=== PATIENT | male | born 1955 | race Caucasian/White ===

== ENCOUNTER 2018-06-12 09:44 | Inpatient (IN) | payer OTHER, SELFPAY ==
[2018-05-29 13:31] VITALS: BMI 24.3
[2018-06-12] VITALS (17 sets, daily range): BP systolic 105–174; BP diastolic 67–101; PULSE 68–112; RESP 10–20; TEMP 36–36.6; O2SAT 92–100; BMI 24.3
--- NOTE | 2018-06-12 | DI.RAD.S_ITS ---
PROCEDURE: XR CERVICAL SPINE 2V OR 3V INDICATIONS: ACDF C3-7 TECHNIQUE: 2 intraoperative fluoroscopic view(s) of the cervical spine were acquired. COMPARISON: None. FINDINGS: Bones: 2 intraoperative fluoroscopic views demonstrate ACDF from C3-C7. IMPRESSION: Intraoperative fluoroscopic views of cervical spine fusion. Dictated by: Carly Davis M.D. on 06/12/2018 at 17:45 Approved by: Carly Davis M.D. on 06/12/2018 at 17:46
[2018-06-12] MEDS: LACTATED RINGERS 1,000 ML 42 ML IV ×2 (10:12→16:05)
[2018-06-12] MEDS: ONDANSETRON 4 MG/2 ML INJ IV ×3 (10:58→22:45)
[2018-06-12] MEDS: LORazepam 2 MG/ML SYRINGE 0.5 MG IV (10:58)
--- NOTE | 2018-06-12 12:51 | PM.PREOP ---
Pre-operative Note Interval Note Pre-op Check: Yes History & Physical Reviewed by Physician and Yes Exam Performed Changes: No
--- NOTE | 2018-06-12 13:56 | P.OP_ITS ---
Operative Date/Time/Diagnoses Date of procedure: 06/12/18 Time of procedure: 17:35 Pre-op diagnosis: Cervical stenosis with myelopathy Post-op diagnosis: same Procedure & Clinicians Procedure: C3-4, C4-5, C5-6, C6-7 posterior instrumented fusion C3-4, C4-5, C5-6, C6-7 anterior cervical diskectomy and fusion with cages Iliac crest bone graft Use of microscope Same procedure as scheduled: Yes Indications: [age] year old male with intractable pain from cervical stenosis. They had failed conservative management and requested operative intervention. Risks and benefits of surgery were discussed and appropriate consents were obtained. Surgeon: Rupert Guzman Biomedical Engineering Director: Destinee Du Anesthesia Type: General Operative Notes Findings: none Closure Type: primary Specimen(s): none sent Implants & Drains: DTrax posterior cages and screws Darren LDR LEON-C anteriorly Applied: catheter Estimated Blood Loss (mL): 10 Procedure in detail: The patient was brought to the operating room and intubated on the stretcher. Time-out was performed. There were then rolled over to the well-padded prone position on chest rolls. Two views of fluoroscopy were taken to confirm our positioning. The neck was then prepped and draped in the standard sterile fashion. Preoperative antibiotics were given. Using fluoroscopy, we localized for planned incisions. Two small 8 mm horizontal incisions were made over the lateral masses approximately 2 fingers below our planned surgical site. We then spread down and opened up the fascia. Then percutaneously placed our Steinmann pin through the soft tissue into the facet joint at C3-4 under fluoroscopic visualization. We used the reamer to decorticate the lateral masses compromising the facet. A trocar was placed over the Steinmann pin into the facet and then the pin was removed. We used a rasp to decorticate the facet joint itself. We then filled the DTrax cage with Osteocell bone graft and impacted it into the facet joint at C3-4 under fluoroscopic guidance. We then took the lateral mass screw and placed it through the cage and then into the lateral mass for the posterior screw fixation. The music journalist was removed and we packed more bone graft down the trocar covering the lateral mass. This was done bilaterally. This completed the instrumented posterior fusion at C3-4. We then went to the next levels at C4-5, C5-6, and C6-7. The same procedure was performed with preparation, placement of the cage with bone graft, and placement of the screw for instrumented posterior fusion at C4-5, C5-6 and C6- 7. He had an absent left C6 pedicle and lamina and had 1 large C5-7 facet. This level was done on the left. We did make 2 lower incisions to get the lower 2 levels as well. The wounds were irrigated. The skin was closed and a sterile dressing placed. The patient was then rolled over to the table in the supine position and positioned for the anterior surgery. The arms were tucked and a shoulder roll was placed. The neck and left iliac crest were prepped and draped in the standard sterile fashion. A 3 cm oblique incision was made on the left side of the neck along the skin fold. Bovie was used to split the platysma. We then bluntly dissected a standard anterolateral approach to the precervical fascia. A marker was placed and x-ray taken to confirm our positioning. We then used the Bovie to the subperiosteally lift up the longus colli muscles. Self-retaining retractors were placed. We then placed [place] pins and distracted across the C3-4 disc space. We brought in the microscope. A complete anterior discectomy was performed at C3-4 using a combination of scalpel, curettes, pituitaries, and Kerrison rongeurs. The bur was used to take down the posterior osteophytes as well as decorticate the disc space. We then released the PLL and used the Kerrison to remove any further posterior osteophytes and disc material. At the end a nerve hook could be swept cephalad caudally and out the neural foramen and everything was open. We trialed for our cages. A small stab incision was made over the left iliac crest. We placed a Jamshidi aspiration needle into the iliac crest and aspirated several mL of bone marrow graft. We then took our Darren LDR LEON-C cage and packed it with Osteocell, and mixed in the bone marrow aspirate. The cage was then placed into the disc space under fluoroscopic guidance. The 2 locking plates were placed through the cage for fixation. This completed the ACDF at C3-4. We then went to the next level at C4-5, C5-6, and C6-7. Again a complete diskectomy was performed including taking down the PLL and posterior osteophytes and disc material. The endplates were prepped with a bur. We trialed and then packed our LEON-C cage with the bone graft and then placed into the disc space. The locking plates were placed as well. This completed the ACDF at C4-5, C5-6, and C6-7. Final x-rays were taken. The wound was copiously irrigated. There was no bleeding. The carotid was bleeding nicely. The platysma was closed. The superficial skin were closed. A Steri-Strip was placed over the iliac crest incision. Sterile dressings were placed. The patient was then extubated and brought to the recovery room without complication. Complications: none Condition: stable Disposition: PACU Plan for aftercare: Up with physical therapy. Soft collar for comfort.
[2018-06-12] MEDS: CEFAZOLIN 2 GM/100 ML FROZ.PIGGY IV ×2 (14:20→22:48)
--- NOTE | 2018-06-12 15:13 | SUR.OPER ---
Supine, head on gel donut. Arms padded with gel pads, tucked at sides, towel roll under shoulders. Safety belt at thigh. Legs uncrossed.
--- NOTE | 2018-06-12 15:13 | SUR.OPER ---
Prone on padded OR bed, head in foam head support, gel chest rolls, gel pad under knees, pillow under lower legs, toes free of pressure, arms secured at sides. Tape from bilateral shoulders to foot of bed. Tape across body at lower back and lower legs.
[2018-06-12] MEDS: SODIUM CHLORIDE 0.9% 1,000 ML, GENTAMICIN 80 MG IRR (15:21)
[2018-06-12] MEDS: BUPIVACAINE 0.25% W/ EPI VIAL 50 ML INJ (15:50)
[2018-06-12] MEDS: ACETAMINOPHEN IV 1,000 MG/100 ML VIAL 400 MG IV (16:00)
[2018-06-12] MEDS: HYDROMORPHONE 2 MG INJ 0.5 MG IV ×2 (19:00→19:05)
[2018-06-12] MEDS: HYDROMORPHONE 1 MG INJ 0.5 MG IV (20:33)
[2018-06-12] MEDS: LACTATED RINGERS 1,000 ML 125 ML IV (21:15)
[2018-06-12] MEDS: HYDROCODONE/ACET 5/325 TABLET 2 TAB PO (22:41)
[2018-06-12] MEDS: hydrOXYzine pamoate 25 MG CAPSULE PO (22:41)
[2018-06-13] MEDS: HYDROMORPHONE 1 MG INJ 0.5 MG IV ×3 (00:31→04:21)
[2018-06-13 03:44] VITALS: BP 147/94; PULSE 106; RESP 18; TEMP 37.2; O2SAT 99
[2018-06-13] MEDS: MAG HYDROX/ALUM/SIMETH 30 ML UDC PO (04:02)
[2018-06-13] MEDS: ONDANSETRON 4 MG/2 ML INJ IV ×3 (04:07→19:04)
--- NOTE | 2018-06-13 04:53 | PC.NURSE ---
Dr. Jefferson, notified that have been having N&V, since early this shift & vomited x2. Noted N/V after given Dilaudid, even pre medicated with Zofran 4 mg. Also mentioned that he C/O CP, ECG done ST & HR been in low 100's to 110. Given some Maalox only took 10 cc, but reported it helped. Received orders to try to give Morphine 2-4 mg. every 2 hrs. as needed for pain. Will implement orders.
[2018-06-13] MEDS: LACTATED RINGERS 1,000 ML 125 ML IV ×2 (05:47→14:05)
[2018-06-13] MEDS: CEFAZOLIN 2 GM/100 ML FROZ.PIGGY IV (05:48)
[2018-06-13] MEDS: MORPHINE 2 MG/ML INJ IV ×5 (06:12→16:57)
[2018-06-13 07:40] VITALS: BP 151/82; PULSE 113; RESP 18; TEMP 36.6; O2SAT 99
--- NOTE | 2018-06-13 08:16 | PM.PNPO.1 ---
Subjective Date Patient Seen: 06/13/18 Time Patient Seen: 08:16 Interval history: Very rough night. A large amount of pain into the upper trapezius. Arms are fine. He has been very nauseated and has had emesis. He was also having chest pain. His EKG was normal except for just some slight sinus tachycardia. This was much better with Maalox and it went away. However he wound up throwing up again. Exam Vital Signs (past 8 hours): - 06/13/18 03:44 06/13/18 07:40 Temperature 98.9 F 97.8 F Pulse Rate 106 H 113 H Respiratory Rate 18 18 Blood Pressure 147/94 H 151/82 H Pulse Oximetry 99 99 Oxygen Delivery Method Room Air Oxygen Flow Rate 0 Const Orientation: alert and oriented x3 Back/Spine/Pelvis Other: Anterior dressing CDI. Moderate drainage posterior dressing. 5/5 motor both upper extremities Assessment & Plan Post-op Postoperative Procedures Operation Date: 06/12/18 11:45 Actual Procedures Side Surgeon p C3-4,C4-5,C5-6,C6-7 Anterior discectomy & Ant/Post Instru. Fusion w/Iliac Crest Bone graft Not Applicable Rupert Guzman MD Stable after the surgery. However, pain control and nausea are the main issues. We will work on adjusting his medications for this. Try to get up out of bed today. Quality VTE Deep Vein Thrombosis/Pulmonary Embolism Present on Admission: No
[2018-06-13] MEDS: LORazepam 2 MG/ML SYRINGE 0.5 MG IV (08:36)
[2018-06-13] MEDS: PANTOPRAZOLE 40 MG VIAL IV (09:55)
[2018-06-13] MEDS: DEXAMETHASONE 10 MG/ML VIAL IV (09:55)
[2018-06-13] MEDS: diazePAM 2 MG TABLET PO (11:52)
--- NOTE | 2018-06-13 14:00 | OT.IP.TRT ---
Current Diagnoses Spinal stenosis, cervical region (06/12/18) Surgery Performed Operation Date: 06/12/18 11:45 Actual Procedures p C3-4,C4-5,C5-6,C6-7 Anterior discectomy & Ant/Post Instru. Fusion w/Iliac Crest Bone graft(Not Applicable) - Rupret Guzman MD Occupational Therapy Treatment Note M3 OT- IP Subjective and Pain Start: 06/13/18 14:03 Freq: Status: Active Protocol: Document 06/13/18 14:03 [facility] (Rec: 06/13/18 14:05 [facility] [id number]) OT- Subjective Occupational Therapy Visit Type Type Administrative Note Visit Start Time 14:00 Notes OT referral received. RN requesting Hold OT eval today as pt has had poor pain control, N/V and high anxiety requiring multiple sedating meds and pt now on steroids as well. Pt not ready for assessment of self care skills s/p C3-7 ant/post fusion. Will attempt again in AM as medical status permits. No charge.
--- NOTE | 2018-06-13 14:35 | SLP.IPNOTE ---
Order received for a speech/swallow consult following C3-7 cervical fusion on 06/12/18. Pt was in bed with c/o pain. Pt presented with good resonant vocal quality without s/sx of breathiness/ aphonia, or other vocal quality difference. Pt reported that his voice sounded normal to him. When asked about swallowing, the pt reported that his throat and esophagus felt swollen, He was assured that this was normal following his surgical procedure. He was able to swallow thin liquids without difficulty and reported that he needs to mush up his foods and take very small bites slowly in order to make it easier to swallow. Education was provided to the pt regarding precautions during eating/drinking. Aditionally, he was counseled to contact his physician if he feels he has difficulty with his swallow/voice in the near future. Non-billable visit <15 minutes.
--- NOTE | 2018-06-13 14:46 | PC.NURSE ---
day shift pt very concerned with pain medication and hyper-focused on small details. asks repeatedly to tell pt the medications and what they do to him. Per MD, start IV protonix for GERD, IV decadron, PO valium (crushed in applesauce), and continued IV morphine with zofran for pain control. Pt was able to sleep this afternoon. Upon awakening, states pain is again 8.8-8.9. States goes down to a 7.9-8.2 with pain medication. sat on edge of bed to attempt to eat, had a few bites of egg, applesauce and water. IVF continued. No emesis this shift. hourly rounding provided, call light within reach.
--- NOTE | 2018-06-13 14:50 | PT.IPTN ---
Addendum entered and electronically signed by Delfina Mendoza PT 06/13/18 14:54: this is to certify that I have reviewed this documentation and POC Original Note: Current Diagnoses Spinal stenosis, cervical region (06/12/18) Surgery Performed Operation Date: 06/12/18 11:45 Actual Procedures p C3-4,C4-5,C5-6,C6-7 Anterior discectomy & Ant/Post Instru. Fusion w/Iliac Crest Bone graft(Not Applicable) - Rupert Guzman MD Physical Therapy Treatment Note M3 PT-IP Subjective Start: 06/13/18 14:43 Freq: NEEDED Status: Active Protocol: Document 06/13/18 14:43 (Rec: 06/13/18 14:47 [id number]) Subjective Physical Therapy Visit Type Type Patient Refusal Notes Checked on pt multiple times this morning for PT evaluation . Pt requests waiting to work with PT due to excruciating pain. He states pain is 8/10 despite pain medications and worsens with even slight movements. His HR is also very high in supine at rest ( ranging 116-120 bpm both times PT checked). Nurse aware of pt status and says she is preparing to give him morphine . PT will check on him again this afternoon and if he is still not ready and HR still high, PT will hold for today and check in the morning.
--- NOTE | 2018-06-13 15:09 | PT.IPTN ---
Addendum entered and electronically signed by Delfina Mendoza PT 06/13/18 16:18: This is to certify that I have reviewed this documentation and POC Original Note: Addendum entered and electronically signed by Delfina Mendoza PT 06/13/18 16:14: This is to certify that I have reviewed this documentation and POC Original Note: Current Diagnoses Spinal stenosis, cervical region (06/12/18) Surgery Performed Operation Date: 06/12/18 11:45 Actual Procedures p C3-4,C4-5,C5-6,C6-7 Anterior discectomy & Ant/Post Instru. Fusion w/Iliac Crest Bone graft(Not Applicable) - Rupert Guzamn MD Physical Therapy Treatment Note M3 PT-IP Subjective Start: 06/13/18 14:43 Freq: NEEDED Status: Active Protocol: Document 06/13/18 15:07 (Rec: 06/13/18 15:09 [id number]) Subjective Physical Therapy Visit Type Type Patient Refusal Notes Pt continues to request hold on PT due to high levels of pain. Rates pain 8-9/10 despite recent dose of Morphine. His HR also remains very high at rest (116- 125 in supine with conversation). Pt told PT will check on him in the morning.
--- NOTE | 2018-06-13 15:15 | CM.IDA ---
Discharge Planning/Care Management CM Discharge Assessment Start: 06/13/18 15:10 Freq: Status: Active Protocol: Document 06/13/18 15:10 [facility] (Rec: 06/13/18 15:15 [facility] [id number]) Discharge Planning Assessment Assigned Enrollment Representative GABBY Landry DPOA/Assigned Designee Name Zina Alba, spouse Contact Information [phone] Advance Directives? No Advance Directives on File No History Provided By Patient Prior Living Arrangements House Household Members spouse Type of transporation used prior to Drives own vehicle admit Independent with ADL's Yes Is patient alert and oriented? Yes Comment Home w/spouse is expected Barriers to Discharge No Comment PT held today d/t pt's request , states in too much pain -. According to notes, pt had a very tough evening, N/V and pain. Met briefly w/pt and spouse Zina this morning, explained role and left contact information. Pt expects to DC home w.spouse to assist when medically stable and pain under better control. Following closely in case DC needs or concerns arise. Discharge Plan Home Transportation Arrangement Family Referrals Initiated None needed Additional Comment Likely none needed. POD#1 and PT is still pending. Whiteboard Updated in Patient Room with Yes name and ext. # of Enrollment Representative
[2018-06-13 15:33] VITALS: BP 161/99; PULSE 122; RESP 20; TEMP 36.6; O2SAT 97
--- NOTE | 2018-06-13 17:04 | PC.NURSE ---
PATIENT IS UP TO BATHROOM SBA WITH SOFT COLLAR IN PLACE,BACK TO BED REQUESTS MORPHINE IVP,WHILE GETTING 2MG PATIENT STATES WAS NOT ENOUGH AND WOULD LIKE 4MG THIS TIME,ANOTHER 2MG GIVEN FOR 8/10 NECK PAIN.
[2018-06-13] MEDS: MORPHINE 4 MG/ML INJ IV ×2 (19:04→21:17)
[2018-06-13 20:00] VITALS: BP 143/83; PULSE 108; RESP 20; TEMP 37.3; O2SAT 97
[2018-06-13] MEDS: METOCLOPRAMIDE 10 MG/2 ML INJ IV (21:17)
[2018-06-13] MEDS: DOCUSATE 100 MG CAPSULE PO (21:18)
[2018-06-13] MEDS: CELECOXIB 200 MG CAPSULE PO (21:18)
[2018-06-13] MEDS: GABAPENTIN 300 MG CAPSULE PO (21:18)
[2018-06-14] MEDS: MORPHINE 2 MG/ML INJ IV (00:14)
[2018-06-14 00:15] VITALS: BP 133/73; PULSE 113; RESP 17; TEMP 36.9; O2SAT 95
[2018-06-14] MEDS: ONDANSETRON 4 MG/2 ML INJ IV (00:15)
[2018-06-14] MEDS: HYDROCODONE/ACET 5/325 TABLET 1 TAB PO ×2 (05:45→09:58)
[2018-06-14] MEDS: diazePAM 2 MG TABLET 4 MG PO ×2 (05:46→09:57)
[2018-06-14 05:55] VITALS: BP 140/85; PULSE 100; RESP 17; TEMP 36.9; O2SAT 94
--- NOTE | 2018-06-14 07:24 | PM.PNPO.1 ---
Subjective Date Patient Seen: 06/14/18 Time Patient Seen: 07:24 Interval history: He is doing tremendously better today. No more nausea. Was up and moving yesterday. Pain is about 6/10. Arms are feeling much better. Exam Vital Signs (past 8 hours): - 06/14/18 00:15 06/14/18 05:55 Temperature 98.5 F 98.5 F Pulse Rate 113 H 100 H Respiratory Rate 17 17 Blood Pressure 133/73 140/85 Pulse Oximetry 95 94 Heart rate is coming down was actually in the 80s when I walked in the room. Oxygen Delivery Method Room Air Oxygen Flow Rate 0 Back/Spine/Pelvis Other: Posterior dressing moderate drainage. 5/5 motor both upper extremities Assessment & Plan Post-op Postoperative Procedures Operation Date: 06/12/18 11:45 Actual Procedures Side Surgeon p C3-4,C4-5,C5-6,C6-7 Anterior discectomy & Ant/Post Instru. Fusion w/Iliac Crest Bone graft Not Applicable Rupert Guzman MD He is doing tremendously better. He is fine for discharge home today. Quality VTE Deep Vein Thrombosis/Pulmonary Embolism Present on Admission: No
--- NOTE | 2018-06-14 07:26 | PM.DS.1 ---
History of Present Illness Date Patient Seen: 06/14/18 Time Patient Seen: 07:26 Chief complaint: [id number] Narrative: 63-year-old male with cervical stenosis with myelopathy. Discharge Providers Date of admission: 06/12/18 09:44 Consults: 06/12/18 19:30 Consult to Occupational Therapy Evaluate & Treat Comment: Physician Instructions: Evaluate and treat Consult to Physical Therapy Evaluate & Treat Comment: Physician Instructions: Evaluate and Treat 06/12/18 19:50 Consult to Speech Therapy Evaluate & Treat Comment: s/p 4 level ACDF Physician Instructions: Evaluate and treat Discharge provider: Rupert Guzman MD Discharge Date: 06/14/18 Summary Discharge Diagnosis: Cervical stenosis with myelopathy Hospital Course: He was admitted on 06/12/2018 where he underwent C3 through 7 posterior fusion and ACDF. He had severe nausea and pain the 1st night after surgery but was doing better the next day. Had significant improvement in his arm function. He was ready to go by postop day 2. Status at Discharge Cognitive/behavioral status at discharge: Normal Functional status at discharge: independent ambulation Overall status at discharge: patient is progressing back to baseline Time Spent with Patient Less than 30 minutes Exam Vital Signs (past 8 hours): - 06/14/18 00:15 06/14/18 05:55 Temperature 98.5 F 98.5 F Pulse Rate 113 H 100 H Respiratory Rate 17 17 Blood Pressure 133/73 140/85 Pulse Oximetry 95 94 Oxygen Delivery Method Room Air Oxygen Flow Rate 0 Back/Spine/Pelvis Other: Moderate posterior drainage. 5/5 motor both upper extremities. Discharge Plan Discharge Plan Patient Disposition: Home Discharge Med Rec/Prescriptions Prescriptions: New diazepam 2 mg Tablet See Label Instructions .ROUTE .COMPLEX PRN (Reason: spasms) Qty: 20 RF: 0 celecoxib 100 mg capsule 200 mg PO BID PRN (Reason: pain) Qty: 60 RF: 0 hydrocodone-acetaminophen 5-325 mg Tablet See Label Instructions .ROUTE .COMPLEX PRN (Reason: Pain, Moderate (4-6)) Qty: 40 RF: 0 Continue triazolam 0.25 mg Tablet 0.5 tab PO BEDTIME PRN (Reason: Sleep) RF: 0 sumatriptan succinate 50 mg Tablet 50 mg PO PRN PRN (Reason: Migraine Headache) RF: 0 acyclovir 400 mg Tablet 400 mg PO PRN PRN (Reason: breakout) RF: 0 omeprazole 20 mg Tablet,Delayed Release (Dr/Ec) 20 mg PO DAILY RF: 0 Provider Discharge Instructions Activity: 10 lbs max lift, soft collar for comfort Skin/Wound/Dressing Care Dressing: may change dressing and shower POD #5 Discharge Data Attending Provider: Rupert Guzman Admit Date/Time: 06/12/18 09:44 Quality VTE Deep Vein Thrombosis/Pulmonary Embolism Present on Admission: No
[2018-06-14 08:00] VITALS: BP 142/91; PULSE 98; RESP 16; TEMP 37.1; O2SAT 98
--- NOTE | 2018-06-14 09:27 | PT.IIE ---
Current Diagnoses Spinal stenosis, cervical region (06/12/18) Surgery Performed Operation Date: 06/12/18 11:45 Actual Procedures p C3-4,C4-5,C5-6,C6-7 Anterior discectomy & Ant/Post Instru. Fusion w/Iliac Crest Bone graft(Not Applicable) - Rupert Guzman MD Surgical History (Last Updated 05/29/18 @ 14:41 by Mini Theodore, RN) S/P left knee arthroscopy (Acute) Medical History (Last Updated 05/29/18 @ 14:43 by Mini Theodore RN) Anxiety about health (Acute) Asthma (Acute) Bilateral tinnitus (Acute) Elevated AST (SGOT) (Acute) Forehead laceration (Acute) GERD (gastroesophageal reflux disease) (Acute) Hiatal hernia (Acute) Migraines (Acute) Numbness and tingling (Acute) Skin cancer (Acute) Thyroid nodule (Acute) Physical Therapy Inpatient Evaluation/Re-Eval M1 PT/OT-IP Prior Functional Status Start: 06/13/18 14:03 Freq: NEEDED Status: Active Protocol: Document 06/14/18 09:16 DL (Rec: 06/14/18 09:26 [facility] [id number]) Medical Review Prior Functional Status Medical History Reviewed Yes Diet/Fluid Consistency Regular Communication WNL Mobility and Gait Independent, community distances, has started to have numbness/tingling in legs related to his stenosis before surgery Activities of Daily Living and IADL's Independent Prior Functional Level (Other details) he drives Social History Household Members spouse Living Arrangements House Number of Floors (Floors) One Floor Number of Stairs To Enter/Railing? 2, no rail, post he can hold Employment Status Retired Additional Social History Comment retired software support engineer M2 PT-IP Current Condition Start: 06/13/18 14:43 Freq: NEEDED Status: Active Protocol: Document 06/14/18 09:16 DL (Rec: 06/14/18 09:26 [facility] [id number]) Physical Therapy Current Condition Current Condition Evaluation Date 06/14/18 Treatment Diagnosis C3-7 Ant/Posterior fusion, ACDF Onset Date 06/12/18 Precautions Cervical Spine Precautions Soft Collar at all Times No Heavy Lifting Log Roll Other Precautions pain issues immediately after surgery M3 PT-IP Subjective Start: 06/13/18 14:43 Freq: NEEDED Status: Active Protocol: Document 06/14/18 09:16 DL (Rec: 06/14/18 09:26 [facility] [id number]) Subjective Physical Therapy Visit Type Type Initial Evaluation Visit Start Time 08:30 Visit Stop Time 09:10 Total Visit Minutes 40 Number of [employer] Visits 0 Physical Therapy Visit Comments Patient Comments He feels a lot better today, pain is better controlled, no LE symptoms, no UE symptoms Patient Goals go home today M4 PT-IP Mobility and Gait Start: 06/13/18 14:43 Freq: NEEDED Status: Active Protocol: Document 06/14/18 09:16 DL (Rec: 06/14/18 09:26 [facility] [id number]) PT-Bed Mobility Assessment Rolling Type of Rolling Log Rolling Roll to Left Level of Assist Independent Supine to Sit Supine to Sit Independent Sit to Supine Sit to Supine Independent Scooting Scooting to Edge of Bed Independent PT-Transfer Assessment Sit to and From Stand Sit to and from Stand Independent Equipment Transfer Assistive Device None Transfers Transfer Destination Chair Transfer Technique Stand Step Pivot Transfer Ability Level of Assist Independent Gait Assessment Gait Gait Assistance Required: Independent Distance (Feet) 400 Assistive Devices Assistive Device None Orthotic/Prosthetic Devices or Brace: Yes Gait Deviations General Gait Pattern Within Normal Limits Comments Gait Comments soft cervical collar in place, no light-headedness, no increase in symptoms Stair Climbing Assessment Evaluation Level of Assist On Stairs Independent Devices Stair Climbing Assistive Devices Right Railing Technique/Endurance Stair Climbing Direction Ascend and Descend Stair Climbing Technique Step Over Step Number of Steps Climbed 3 Query Text: Stair Climbing Set # Repetitions (reps) 1 Comments Stair Climbing Comments recommend he hold post at home to decrease risk of tripping on steps, educated pt on risks of decreased ability to see feet with cervical collar PT-Balance Assessment Sitting Balance and Reactions Static Sitting Balance Ability Normal Dynamic Sitting Balance Ability Normal Standing Balance and Reactions Static Standing Balance Ability Good Dynamic Standing Balance Ability Good Device Used none M5 PT-IP Objective Assessments Start: 06/13/18 14:43 Freq: NEEDED Status: Active Protocol: Document 06/14/18 09:16 DL (Rec: 06/14/18 09:26 [facility] [id number]) Orientation Orientation/Cognition Level of Alertness Alert Orientation Name Age Birthday Month Date Year Day of Week Place Situation Language Function Ability No Deficits Noted Safety Awareness Understands Safety Issues Memory Description No Deficits Noted Comments verbalizes a good understanding of his post-sx precautions Gross Range of Motion Upper Extremity ROM Assessment Within Functional Limits Lower Extremity ROM Assessment Within Functional Limits Strength Upper Extremity Strength Assessment Within Functional Limits Lower Extremity Strength Assessment Within Functional Limits Comments Strength Comments did not MMT UE's due to post- sx precautions, good functional use of UE's with mobility and ADL's Coordination Assessment Gross Coordination Gross Coordination WNL Sensation Assessment Sensation Gross Sensation WNL Muscle Tone Muscle Tone WNL Yes M6 PT-IP Treatment Start: 06/13/18 14:43 Freq: NEEDED Status: Active Protocol: Document 06/14/18 09:16 DL (Rec: 06/14/18 09:26 [facility] [id number]) Physical Therapy Treatment Education Education Provided Safety Other Treatments Other Treatment Performed OT will be reviewing cervical collar don/dof and giving post -op hand-out M7 PT-IP Assessment and Plan Start: 06/13/18 14:43 Freq: NEEDED Status: Active Protocol: Document 06/14/18 09:16 DL (Rec: 06/14/18 09:26 [facility] [id number]) PT Summary Assessment and Plan Potential Rehabilitation Potential Excellent Status of Condition at Evaluation Evolving Summary Impairments Pain ROM Strength Assessment Summary He is tolerating activity well today. Pt reports good pain control this visit. He appears safe to discharge with his for support. Educated pt in post-op precautions. Answered his questions. His is not present this visit . No further skilled physical therapy needs at this time. Frequency of Treatment Frequency Of Treatment Discharge Recommendations To Nursing Amount of Assist Needed Standby Assistance Discharge Recommendations PT Discharge Recommendations Home with Assistance
--- NOTE | 2018-06-14 09:44 | OT.IP.EVAL ---
Current Diagnoses Spinal stenosis, cervical region (06/12/18) Surgery Performed Operation Date: 06/12/18 11:45 Actual Procedures p C3-4,C4-5,C5-6,C6-7 Anterior discectomy & Ant/Post Instru. Fusion w/Iliac Crest Bone graft(Not Applicable) - Rupert Guzman MD Past Medical History (Last Updated 05/29/18 @ 14:43 by Mini Theodore, RN) Anxiety about health (Acute) Asthma (Acute) Bilateral tinnitus (Acute) Elevated AST (SGOT) (Acute) Forehead laceration (Acute) GERD (gastroesophageal reflux disease) (Acute) Hiatal hernia (Acute) Migraines (Acute) Numbness and tingling (Acute) Skin cancer (Acute) Thyroid nodule (Acute) Surgical History (Last Updated 05/29/18 @ 14:41 by Mini Theodore RN) S/P left knee arthroscopy (Acute) Occupational Therapy Inpatient Evaluation/Re-Eval M1 PT/OT-IP Prior Functional Status Start: 06/13/18 14:03 Freq: NEEDED Status: Active Protocol: Document 06/14/18 09:44 PJBenoit (Rec: 06/14/18 17:03 [facility] [id number]) Medical Review Prior Functional Status Medical History Reviewed Yes Diet/Fluid Consistency Regular Communication WNL Mobility and Gait Independent, community distances, has started to have numbness/tingling in legs related to his stenosis before surgery Activities of Daily Living and IADL's Independent with all self care ; 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 OT-IP Current Condition Start: 06/13/18 14:03 Freq: Status: Active Protocol: Document 06/14/18 09:44 PJBenoit (Rec: 06/14/18 17:03 PJ [id number]) Occupational Therapy Current Condition Current Condition Evaluation Date 06/14/18 Treatment Diagnosis decreased self care s/p C3-7 ACDF w/ posterior fusion 06/13 Post Operative Precautions Cervical Spine Precautions Soft Collar at all Times No Heavy Lifting Log Roll M3 OT- IP Subjective and Pain Start: 06/13/18 14:03 Freq: Status: Active Protocol: Document 06/14/18 09:44 PJM (Rec: 06/14/18 17:03 PJ [email or web address]) OT- Subjective Occupational Therapy Visit Type Type Initial Evaluation Visit Start Time 09:10 Visit Stop Time 09:44 Total Visit Minutes 34 Occupational Therapy Visit Comments Patient Comments I feel so much better today. Yesterday was really bad. Patient/Caregiver Goals to go home today OT Pain Assessment Pain When Pain Assessed After Treatment Pain Present Pain Present Pain Reported Location Bilateral Shoulder Intensity 2 Scale Used Numeric (1 - 10) Description Aching Acute M4 OT- IP ADL's Start: 06/13/18 14:03 Freq: Status: Active Protocol: Document 06/14/18 09:44 PJM (Rec: 06/14/18 17:03 PJ [email or web address]) OT [id number] General Evaluation Diet Level for Self-Feeding soft Self-Feeding Ability Independent Comments OT Self-Feeding Comments S.T. has provided education re : soft diet textures OT ADL-Grooming General Evaluation Grooming Ability Independent Areas Needing Assistance Combing/Brushing Hair Face Washing Shaving Comments OT Grooming Comments after education re: body mechanics standing at sink OT ADL-Oral Care General Eval Oral Care Ability Independent Areas of Assistance Brushing Teeth Devices Oral Care Devices Toothbrush Comments Oral Care Comments after education re: body mechanics standing at sink OT ADL-Dressing General Eval Upper Body Dressing Ability Independent Lower Body Dressing Ability Independent Areas Needing Assistance Button-Up Shirt/Blouse Underpants/Brief Pants/Shorts Socks Shoes Comments OT Dressing Comments Provided education re: body mechanics, recommend ditch worker for retrieving items off floor OT ADL-Toileting General Evaluation Toileting Ability Independent OT ADL-Bathing Comments OT Bathing Comments Pt declines to shower here; provided education re: methods to keep incision dry; hair washing; 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 from , recommend long bath sponge M5 OT- IP IADL's Start: 06/13/18 14:03 Freq: Status: Active Protocol: Document 06/14/18 09:44 PJM (Rec: 06/14/18 17:03 PJ [id number]) OT-Instrumental Activities of Daily Living Deficits IADL Deficits Identified Deficits Home Safety Awareness Awareness of Need for Assistance at Home Good Awareness Ability to Problem Solve Emergency Able to Problem Solve Situations Medication Management Medication Management No Deficits Identified Money Management Money Management No Deficits Identified Meal Preparation Meal Preparation Caregiver Provides Assist Meal Preparation Comments will assist Senior Java Developer Senior Java Developer Caregiver Provides Assist Senior Java Developer Comments will assist until pt able Driving Driving Caregiver Provides Assist Driving Comments will assist until pt able M6 OT- IP Functional Cognition Start: 06/13/18 14:03 Freq: Status: Active Protocol: Document 06/14/18 09:44 PJM (Rec: 06/14/18 17:03 [facility] [id number]) Cognitive Factors Limiting Selfcare Function Cognitive Ability Level of Alertness Alert Patient Orientation Name Age Birthday Month Date Year Day of Week Place Situation Attention Span Ability Capable of Focused Attention Capable of Sustained Attention Ability to Follow Commands Able to Follow One Step Commands Memory Description No Deficits Noted Safety Awareness No Deficits Noted Problem Solving Ability No deficits Noted Cognitive Comments Cognitive Assessment Comments Pt recalls precautions and verbalizes/demos good understanding of all education . OT- Vision and Hearing OT- Vision Assessment Visual Acuity WFL Glasses All The Time Vision Assessment Comments Pt denies any recent vision changes M7 OT- IP Mobility and Balance Start: 06/13/18 14:03 Freq: Status: Active Protocol: Document 06/14/18 09:44 PJM (Rec: 06/14/18 17:03 [facility] [id number]) OT-Transfer Assessment Sit to and From Stand Sit to and from Stand Independent Transfers Transfer Ability Independent Technique Transfer Destination Car Chair Transfer Technique Stand Step Pivot Devices Transfer Assistive Devices None Comments Mobility Comments Pt up in room ad karla without a device. Provided education re : car transfer technique. OT- Gait Assessment Gait Gait Assistance Required: Independent Distance (Feet) 15 Assistive Devices Assistive Device None Comments Gait Ability Comments No loss of balance noted walking to sink and back. OT- Balance Assessment Sitting Balance and Reactions Static Sitting Balance Ability Good Dynamic Sitting Balance Ability Good Standing Balance and Reactions Static Standing Balance Ability Good Dynamic Standing Balance Ability Good M8 OT- IP Objective Assessments Start: 06/13/18 14:03 Freq: Status: Active Protocol: Document 06/14/18 09:44 PJM (Rec: 06/14/18 17:03 [facility] [id number]) OT Gross Range of Motion Upper Extremity Range of Motion Assessment Within Functional Limits ROM Impairments Shoulder end ranges NT due to recent c-spine surgery OT Strength Upper Extremity Strength Assessment Within Functional Limits Hand Sulfonation Equipment Operator Strength Hand Dominance Right OT- Coordination Assessment Comments Coordination Comments BUE WFL this session with no dropping of items noted OT Sensation Assessment Comments Summary Comments Pt reports tingling in B hands Edema Edema Absent M9 OT- IP Assessment and Plan Start: 06/13/18 14:03 Freq: Status: Active Protocol: Document 06/14/18 09:44 PJM (Rec: 06/14/18 17:03 PJM [id number]) OT Summary Assessment and Plan Potential Rehabilitation Potential Good Analytic Complexity at Evaluation Low Summary Progress Towards Goals Safe For Discharge Goals Met Assessment Summary Low complexity OT assessment and all OT education completed with pt in one session re: C- spine precautions and adapted ADL techniques. Pt verbalizes and demonstrates understanding of all education. Pt plans to d/c home today with 24 hr assist from supportive . No further OT services needed. Frequency of Treatment Frequency Of Treatment Discharge Discharge Recommendations OT Discharge Recommendations Home with 24/7 Assist Home Equipment Needs Recommend ditch worker and long bath sponge
[2018-06-14] MEDS: PANTOPRAZOLE 40 MG VIAL IV (09:57)
[2018-06-14] MEDS: DOCUSATE 100 MG CAPSULE PO (09:58)
[2018-06-14] MEDS: CELECOXIB 200 MG CAPSULE PO (09:58)
--- NOTE | 2018-06-14 13:57 | PC.NURSE ---
Discharge pt was able to urinate 2x after removal of aldrich. PVR after second urination was about 18ml. Pt aware to seek medical attention if unable to urinate. pain controlled with PO norco and PO valium. posterior dressing changed per MD order. D/c instructions provided to pt and his . Pt has postop apt already scheduled. [place] with priority ferry boarding pass. notified to contact MD with any additional questions or concerns. Pt states he took all belongings with him. left in w/c with ENGINEERING MATHEMATICIAN escort.
== END 2018-06-14 13:05 | disposition home or self-care (01) | DRG 321 ==
PROVIDERS: Admitting Provider Orthopaedic Surgery; Visit Provider Orthopaedic Surgery
PROC: 0RG20A0 Fusion of 2 or more Cervical Vertebral Joints with Interbody Fusion Device, Anterior Approach, Anterior Column, Open Approach (ICD-10-PCS; principal; 2018-06-12 11:45)
DX: M48.02 Spinal stenosis, cervical region (principal); G95.29 Other cord compression; F41.9 Anxiety disorder, unspecified; K21.9 Gastro-esophageal reflux disease without esophagitis; E78.5 Hyperlipidemia, unspecified; J45.909 Unspecified asthma, uncomplicated
CPT/HCPCS: 72040; 76001; 93005; 97162; 97165; 97535; C1776; C9113; J0131; J0690; J1100; J1170; J2060; J2250; J2270; J2405; J2704; J2765; J3010